=== PATIENT | female | born 1990 | race Caucasian/White ===

== ENCOUNTER 2017-03-15 23:46 | Inpatient (IN) | payer OTHER ==
[2017-03-16] MEDS ORDERED: Ammonia Inhalant* 1 EA AMP ONE (00:23)
[2017-03-16] MEDS ORDERED: OBEPIDURAL* 250 ML ONE (00:23)
[2017-03-16 00:43] LABS: Hematocrit 36 % (35-47); Hemoglobin 11.9 g/dl (12.0-16.0); Mean Corpuscular HGB Conc 33 g/dl (31-36); Mean Corpuscular Hemoglobin 30 pg (27-31); Mean Corpuscular Volume 91 fL (80-97); Mean Platelet Volume 9 um3 (7.4-10.4); Red Blood Count 3.94 10^6/ul (4.0-5.4); Red Cell Distribution Width 14 % (10.5-15); White Blood Count 15.4 10^3/ul (3.5-10.8)
[2017-03-16 00:48] LABS: Add Diff/Slide Review? Slide Review Added; Comments Flag Yes
[2017-03-16] MEDS ORDERED: Sodium Citrate/Citric Acid* 15 ML UDC PO PRN (02:02)
[2017-03-16] MEDS ORDERED: Famotidine TAB* 20 MG PO PRN (02:02)
[2017-03-16] MEDS ORDERED: Phenylephrine IV* 40 MCG/ML 10 ML SYRINGE IV PUSH PRN ×2 (02:02)
[2017-03-16] MEDS ORDERED: OBEPIDURAL* 250 ML EPIDURAL SCH (03:00)
[2017-03-16] MEDS ORDERED: Oxytocin in LR* 20 UNITS/1,000 ML BAG IVPB ONE (06:21)
[2017-03-16] MEDS ORDERED: Oxytocin in LR* 20 UNITS/1,000 ML BAG IVPB SCH ×2 (06:30→15:00)
[2017-03-16] MEDS ORDERED: Acetaminophen TAB* 325 MG PO PRN (14:57)
[2017-03-16] MEDS ORDERED: Glycerin ADULT SUPP PR PRN (14:57)
[2017-03-16] MEDS ORDERED: oxyCODONE/Acetamin 5/325 MG* TAB PO PRN (14:57)
[2017-03-16] MEDS: Ibuprofen TAB* 600 MG PO PRN (15:45)
[2017-03-16] MEDS: Witch Hazel PAD* JAR TOPICAL PRN (15:45)
[2017-03-16] MEDS: Docusate CAP* 100 MG PO SCH (21:26)
[2017-03-17] MEDS: Ibuprofen TAB* 600 MG PO PRN ×3 (04:35→19:34)
[2017-03-17] MEDS: Dibucaine 1% 28.35 GM TUBE PR PRN (04:53)
[2017-03-17 06:28] LABS: Hematocrit 30 % (35-47); Hemoglobin 9.8 g/dl (12.0-16.0); Mean Corpuscular HGB Conc 33 g/dl (31-36); Mean Corpuscular Hemoglobin 30 pg (27-31); Mean Corpuscular Volume 91 fL (80-97); Mean Platelet Volume 8 um3 (7.4-10.4); Red Blood Count 3.28 10^6/ul (4.0-5.4); Red Cell Distribution Width 15 % (10.5-15); White Blood Count 14.6 10^3/ul (3.5-10.8)
[2017-03-17] MEDS: Docusate CAP* 100 MG PO SCH ×3 (07:55→19:34)
[2017-03-17] MEDS: Ferrous Gluconate TAB* 324 MG TAB PO SCH ×2 (07:55→19:36)
[2017-03-17] MEDS: Sertraline* 50 MG TAB PO SCH ×2 (07:55→17:48)
[2017-03-18] MEDS: Ibuprofen TAB* 600 MG PO PRN (04:41)
[2017-03-18 07:55] VITALS: BP 117/78
[2017-03-18] MEDS: Ferrous Gluconate TAB* 324 MG TAB PO SCH (09:10)
[2017-03-18] MEDS: Docusate CAP* 100 MG PO SCH (09:10)
[2017-03-18] MEDS: Witch Hazel PAD* JAR TOPICAL PRN (09:11)
[2017-03-18] MEDS: Dibucaine 1% 28.35 GM TUBE PR PRN (09:11)
[2017-03-18] MEDS: Sertraline* 50 MG TAB PO SCH (09:11)
== END 2017-03-18 11:30 | disposition home or self-care (01) | DRG 775 ==
LOC: MCHOBOUT 23:46 → MCHOB 03-16 00:09
PROVIDERS: ADMIT Midwife; ATTEND Midwife
PROC: 10E0XZZ Delivery of Products of Conception, External Approach (ICD-10-PCS; principal; 2017-03-16)
PROC: 0KQM0ZZ Repair Perineum Muscle, Open Approach (ICD-10-PCS; 2017-03-16)
PROC: 10907ZC Drainage of Amniotic Fluid, Therapeutic from Products of Conception, Via Natural or Artificial Opening (ICD-10-PCS; 2017-03-16)
DX: O99.344 Other mental disorders complicating childbirth (principal); D64.9 Anemia, unspecified; O70.1 Second degree perineal laceration during delivery; O77.0 Labor and delivery complicated by meconium in amniotic fluid; O90.81 Anemia of the puerperium; Z3A.39 39 weeks gestation of pregnancy; Z37.0 Single live birth
CPT/HCPCS: 36415; 85025; 86850; 86900; 86901; 99213; A9270-GY; G0463

== ENCOUNTER 2019-02-16 13:26 | Emergency (ER) | payer MEDICAID, OTHER ==
[2019-02-16 13:40] VITALS: BP 114/79
--- NOTE | 2019-02-16 13:51 | UC ---
Eye Complaint HPI - HPI Summary HPI Summary: Pt presents to urgent for evaluation of her left eyelid. Pt has eye lash extension for > 1 year. pt states she had them filled this past week. Pt states this process involves eyelid manipulation and glue. Pt state over the last 3 days has progressive reddness and swelling of left upper lid and lash margin. pt states approx 1 month had similar - states thought was a stye and used warm soaks. PT states it improved. This time appears more swollen and is more painful. 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 Pt denies vision changes. no eye drainage, no contact lenses/corrective lenses. No contact lenses. tdap utd medications reviewed - History of Current Complaint Chief Complaint: UCEye Stated Complaint: EYE ISSUE Time Seen by Provider: 02/16/19 13:46 Hx Obtained From: Patient Hx Last Menstrual Period: 02/12/19 Pain Intensity: 1 - Allergies/Home Medications Allergies/Adverse Reactions: Allergies Allergy/AdvReac Type Severity Reaction Status Date / Time acetaminophen [From Vicodin] Allergy vomiting Verified 02/16/19 13:41 seizure activity hydrocodone [From Vicodin] Allergy vomiting Verified 02/16/19 13:41 seizure activity Penicillins Allergy Rash Verified 02/16/19 13:41 PMH/Surg Hx/FS Hx/Imm Hx Previously Healthy: Yes - Surgical History Surgical History: None - Family History Known Family History: Positive: Non-Contributory - Social History Occupation: Employed Full-time Lives: With Family Alcohol Use: None Substance Use Type: None Smoking Status (MU): Never Smoked Tobacco - Immunization History Most Recent Influenza Vaccination: 2016 Most Recent Pneumonia Vaccination: never Review of Systems All Other Systems Reviewed And Are Negative: Yes Constitutional: Positive: Negative Physical Exam Vital Signs: Initial Vital Signs Temp 98 F 02/16/19 13:38 Pulse 91 02/16/19 13:38 Resp 17 02/16/19 13:38 BP 114/79 02/16/19 13:38 Pulse Ox 100 02/16/19 13:38 Discharge - Discharge Plan Condition: Stable Disposition: HOME Prescriptions: DOXYcycline CAP(*) [DOXYcycline 100MG CAP(*)] 100 mg PO BID #14 cap Patient Education Materials: Cellulitis (ED), Stye (ED) Referrals: Lilian Argueta [Primary Care Provider] - Gume James MD [Medical Doctor] - Additional Instructions: - Take antibiotics as prescribed until gone - apply warm soaks - sloppy wet for 10 min, 2-3 times a day - it is recommended you do not apply eye make up until you complete the course of antibiotics. Get new make up after the antibiotics - if you continue to have lid swelling, pain, fever, or any other concerns it is recommended you follow-up with the ophthalmology specialist - Billing Disposition and Condition Condition: STABLE Disposition: Home
== END 2019-02-16 14:23 | disposition home or self-care (01) ==
LOC: UCEAST 13:26
DX: H00.034 Abscess of left upper eyelid (principal); Z88.0 Allergy status to penicillin
CPT/HCPCS: 99212; G0463

== ENCOUNTER 2023-01-18 20:09 | Inpatient (IN) ==
[2023-01-18] MEDS ORDERED: Lactated Ringers 1000 ml BAG 1,000 ML IV ONE (21:32)
[2023-01-18 22:26] LABS: Urine Benzodiazepine Screen None Detected (None Detect); Urine Cannabinoids Screen None Detected (None Detect); Urine Opiates Screen None Detected (None Detect)
[2023-01-19] MEDS ORDERED: Oxytocin in LR 20,000 MILLI.UNIT/1,000 ML BAG IV SCH (07:30)
[2023-01-19] MEDS: Lactated Ringers 1000 ml BAG 1,000 ML IV SCH ×2 (07:52→10:56)
[2023-01-19 08:21] LABS: ABS Basophils 0.1 10^3/uL (0.0-0.1); ABS Eosinophils 0.1 10^3/uL (0.0-0.5); ABS Lymphocytes 1.6 10^3/uL (1.0-4.8); ABS Monocytes 0.8 10^3/uL (0.0-0.9); ABS Neutrophils 6.9 10^3/uL (1.5-7.6); Eosinophil % 0.7 %; Hematocrit 37.3 % (35-45); Hemoglobin 12.6 g/dL (11.5-14.3); Lymphocyte % 17.4 %; Mean Corpuscular Hemoglobin 31.5 pg (27-33); Mean Corpuscular Hgb Conc 33.8 g/dL (31-36); Mean Corpuscular Volume 93.2 fL (80-97); Mean Platelet Volume 8.2 fL (7.5-11.2); Platelet Count 219 10^3/uL (150-450); Red Cell Distribution Width 16.7 % (12-17); White Blood Count 9.5 10^3/uL (3.8-11.8)
[2023-01-19] MEDS ORDERED: OBEPIDURAL (200 ML) 200 ML EPIDURAL ONE (09:53)
[2023-01-19] MEDS ORDERED: Lidocaine 1% w EPI 1:200,000 SDV 30 ML VIAL ONE ×2 (09:53→10:22)
[2023-01-19] MEDS ORDERED: Sodium Citrate/Citric Acid LIQ 15 ML UDC PO PRN (10:56)
[2023-01-19] MEDS ORDERED: Phenylephrine 40 mcg/mL 10mL (400mcg) SYRINGE IV PUSH PRN ×2 (10:56)
[2023-01-19] MEDS ORDERED: Lactated Ringers 1000 ml BAG 1,000 ML IV SCH ×2 (11:00→16:00)
[2023-01-19] MEDS ORDERED: OBEPIDURAL (200 ML) 200 ML EPIDURAL SCH (11:00)
[2023-01-19] MEDS ORDERED: Famotidine IV 10 MG/ML 2 ml VIAL (20 mg) IV SLOW PU PRN (12:51)
[2023-01-19 13:05] LABS: Urine Appearance Clear; Urine Bilirubin Negative (Negative); Urine Blood Negative (Negative); Urine Color Straw; Urine Glucose Negative (Negative); Urine Ketones Negative (Negative); Urine Nitrite Negative (Negative); Urine Protein Negative (Negative); Urine Specific Gravity 1.006 (1.002-1.030); Urine Urobilinogen Negative (Negative)
[2023-01-19] MEDS ORDERED: Glycerin ADULT 2.4 gm SUPP PR PRN (15:04)
[2023-01-19] MEDS ORDERED: Witch Hazel PAD JAR TOPICAL PRN (15:04)
[2023-01-19] MEDS ORDERED: Dibucaine 1% OINT 28.35 GM TUBE PR PRN (15:04)
[2023-01-19] MEDS ORDERED: Lidocaine 1% VIAL 10 MG/ML VIAL 30 ML ONE (15:27)
[2023-01-20 06:43] LABS: ABS Lymphocytes 1.3 10^3/uL (1.0-4.8); ABS Monocytes 0.8 10^3/uL (0.0-0.9); ABS Neutrophils 10.2 10^3/uL (1.5-7.6); Eosinophil % 0.4 %; Hematocrit 35.4 % (35-45); Hemoglobin 12.2 g/dL (11.5-14.3); Lymphocyte % 10.4 %; Mean Corpuscular Hgb Conc 34.5 g/dL (31-36); Mean Corpuscular Volume 92.6 fL (80-97); Mean Platelet Volume 7.9 fL (7.5-11.2); Platelet Count 173 10^3/uL (150-450); Red Blood Count 3.82 10^6/uL (3.63-4.92); Red Cell Distribution Width 16.3 % (12-17); White Blood Count 12.3 10^3/uL (3.8-11.8)
[2023-01-20 07:53] VITALS: BP 114/73
== END 2023-01-20 15:59 | disposition home or self-care (01) | DRG 560 ==
LOC: MCHOBOUT 20:09 → MCHOB 21:28
PROVIDERS: ADMIT Midwife; ATTEND Advanced Practice Midwife